=== PATIENT | male | born 1995 | race Caucasian/White ===

== ENCOUNTER 2021-08-16 06:05 | Day surgery (SDC) | payer BC ==
[2021-08-14 09:38] VITALS: BMI 31.2
[2021-08-16] MEDS ORDERED: MIDAZOLAM HCL 2 MG/2 ML SINGLE DOSE VIAL ONE ×5 (07:18→08:43)
[2021-08-16] MEDS ORDERED: ROPIVACAINE HCL/PF 100 MG/20 ML VIAL ONE (07:18)
[2021-08-16] MEDS ORDERED: BUPIVACAINE HCL 50 ML ONE (07:28)
[2021-08-16] MEDS ORDERED: SUCCINYLCHOLINE CHLORIDE 200 MG/10 ML SYRINGE ONE (07:56)
[2021-08-16] MEDS ORDERED: PROPOFOL 20 ML ONE ×2 (07:56)
[2021-08-16] MEDS ORDERED: DEXAMETHASONE SOD PHOSPHATE 4 MG/1 ML VIAL ONE (08:06)
[2021-08-16] MEDS ORDERED: ONDANSETRON 4 MG/2 ML VIAL ONE (08:06)
[2021-08-16] MEDS ORDERED: ceFAZolin SODIUM 1 GM VIAL ONE (08:06)
[2021-08-16] MEDS ORDERED: KETOROLAC TROMETHAMINE 30 MG/1 ML VIAL ONE (08:06)
[2021-08-16] MEDS ORDERED: oxyCODONE HCL 5 MG TABLET PO PRN ×2 (09:46)
[2021-08-16] MEDS ORDERED: ONDANSETRON 4 MG/2 ML VIAL IVPUSH PRN (09:46)
[2021-08-16 10:57] VITALS: TEMP 97.5
[2021-08-16 11:33] VITALS: BP 115/57; PULSE 76
== END 2021-08-16 12:20 | disposition home or self-care (01) ==
LOC: FASU 06:05
PROVIDERS: ATTEND Orthopaedic Surgery Sports Medicine
PROC: 0LQP0ZZ Repair Left Lower Leg Tendon, Open Approach (ICD-10-PCS; principal; 2021-08-16 08:19)
DX: S86.022A Laceration of left Achilles tendon, initial encounter (principal); X58.XXXA Exposure to other specified factors, initial encounter; Y93.9 Activity, unspecified; Y92.9 Unspecified place or not applicable
CPT/HCPCS: 94760